=== PATIENT | female | born 1970 | race Caucasian/White ===

== ENCOUNTER 2024-11-14 03:39 | Emergency (ER) | payer BC, SELFPAY ==
[2024-11-14 03:50] VITALS: BP 152/94
[2024-11-14 04:23] LABS: Urine Albumin Negative (Neg - Trace); Urine Bilirubin Negative (Negative); Urine Character Clear (Clear); Urine Color Yellow; Urine Glucose Negative (Negative); Urine Ketone Negative (Negative); Urine Leukocyte Negative (Negative); Urine Nitrite Negative (Negative); Urine Occult Blood Negative (Negative); Urine Urobilinogen Negative (Neg - 1+); Urine pH 6.5 (5.0-9.0)
[2024-11-14 04:24] LABS: % Eosinophils 1.7 % (0-6); % Immature Granulocytes 0.2 % (0-0.5); % Lymphocytes 57.4 % (20.5-51.1); % Monocytes 11.1 % (1.7-9.3); % Neutrophils 27.6 % (42.2-75.2); Absolute Basophils 0.1 10^3/uL (0-0.2); Absolute Eosinophils 0.1 10^3/uL (0-0.7); Absolute Lymphocytes 2.6 10^3/uL (1.2-3.4); Absolute Monocytes 0.5 10^3/uL (0.1-0.6); Absolute Neutrophils 1.3 10^3/uL (1.4-6.5); Hematocrit 36.2 % (37.0-47.0); Hemoglobin 11.6 g/dL (12.0-16.0); Mean Corpuscular Hgb 27.4 pg (27.0-31.0); Mean Corpuscular Volume 85.4 fL (81.0-99.0); Mean Platelet Volume 9.3 fL (7.4-10.4); Nucleated Red Blood Cells % 0 %; Platelet Count 354 10^3/uL (130-400); Red Blood Cell Count 4.24 10^6/uL (4.20-5.40); Red Cell Dist. Width 13.2 % (11.5-14.5); White Blood Cell Count 4.6 10^3/uL (4.8-10.8)
[2024-11-14 04:41] LABS: ALT (SGPT) 19 U/L (0-35); AST (SGOT) 17 U/L (14-36); Albumin 4.2 g/dl (3.5-5.0); Alkaline Phosphatase 106 U/L (38-126); Blood Urea Nitrogen 13 mg/dl (7-17); Calcium 9.9 mg/dl (8.4-10.2); Carbon Dioxide 24 mmol/L (22-30); Chloride 106 mmol/L (98-107); Glucose 99 mg/dl (70-99); Potassium 4.3 mmol/L (3.5-5.1); Sodium 137 mmol/L (135-145); Total Bilirubin 0.3 mg/dl (0.2-1.3); Total Protein 7.3 g/dl (6.3-8.2); eGFR > 60.00
[2024-11-14 05:39] VITALS: BP 122/84; BMI 31.2
--- NOTE | 2024-11-14 05:41 | EDRN ---
Pt woke with R mid and lower back pain yesterday morning that waxes and wanes, sometimes feels like a contraction. Pt has been taking tylenol (last dose 0100) and advil (last dose 1700 yesterday) and using heat, cold and a patch (pt does not know
what it is, says was not lidocaine) and has not gotten much relief. Pt unable to sit down or lie down due to the pain and says she cannot sleep. Nothing seems to make the pain better. No recent travel (air, long car rides). Pt denies cp, sob
(although she feels she can't get a deep breath sometimes due to pain), abd pain, n/v/d/c, fever/chills/cough, urinary symptoms, weakness, dizziness, recent injury/change in routine/exercise. Pt adds when pain gets bad, it goes down her R leg. No
numbness/tingling.
--- NOTE | 2024-11-14 06:27 | ED.GENMED ---
History of Present Illness
General
Chief Complaint: Flank Pain
Time Seen by Provider: 11/14/24 06:27
History of Present Illness
History of Present Illness:
TIME OF INITIAL ENCOUNTER: 6:30 AM
HPI: Patient presents with right flank pain. The pain is intermittently severe. She has had a kidney stone in the past and the feels somewhat similar to the time she had a kidney stone. The pain radiates up to her shoulder and down her back at
times. She has had no fevers.
EXAM:
GENERAL: Well appearing in no distress
HEENT: Moist oral mucosa
CARDIOVASCULAR: No murmurs, normal heart rate, regular rhythm, No chest wall tenderness
PULMONARY: No respiratory distress, breath sounds are clear and equal
ABDOMEN: Soft with no peritoneal signs, no tenderness
NEUROLOGIC: Excellent strength all extremities, no coordination deficits
PSYCHIATRIC: Appropriate mental status, normal insight and judgement
EXTREMITIES: Nontender, no edema, moves all extremities equally
SKIN: No rash, no lesions
BACK: No significant CVA tenderness
NUMBER AND COMPLEXITY OF PROBLEMS ADDRESSED AT THE ENCOUNTER
� Chronic conditions affecting care: Has had a herniated disc in her back in the past
� Acute Exacerbation and/or Progression of Chronic Illness: This is an acute problem
� Differential Diagnosis includes: Ureteral stone/colic, UTI/pyelonephritis, musculoskeletal
AMOUNT AND/OR COMPLEXITY OF DATA TO BE REVIEWED AND ANALYZED
� I performed an independent evaluation of and my interpretation is:
EKG:
CT: CAT scan of the abdomen pelvis shows no acute abnormality, small right ovarian cysts noted
X-rays:
Laboratory Studies: White count 4.6, hemoglobin 11.6, chemistries including renal function normal, urinalysis shows no blood or signs of infection
Other:
� Review of other/old records: The patient was seen here in 2021 with right flank pain and at that time CT showed a 'probable 3 mm stone in the mid left ureter' however at that time her pain was on the right side
� Clinical information was obtained by an independent historian: None needed
� Prescriptions/Medications Considered but not given:
� Further testing considered but not performed:
RISK OF COMPLICATIONS AND/OR MORBIDITY OR MORTALITY OF PATIENT MANAGEMENT
� Social determinants of health affecting care: Lives at home
� Discussion with other providers:
� Escalation of care including admission/observation vs risk of discharge considered: The patient presents with right flank pain. No blood in the urine and no sign of infection but given the ongoing symptoms, will obtain CT
imaging.
ANY OTHER UPDATES:
9:15 AM: I reassessed patient. She was given Toradol but reports no significant improvement. However, she appears comfortable. Suspect muscular etiology, will try Flexeril as well.
Past History
Past History
ED Past Medical History: Other (Kidney stones)
ED Past Surgical History: None
Social History
Tobacco: Non-smoker
Alcohol: None
Personal:
Living: with family
Phy Exam
Physical Exam
Physical Exam:
See HPI
Sepsis
Sepsis Screening
Sepsis Assessment: Sepsis Ruled Out
Sepsis Screen
Sepsis Screen: Sepsis Ruled Out
Date: 11/14/24
Time: 10:03
Course
Orders/Labs/Results
Orders:
Orders
11/14/24 04:01
CBC/With Diff [Complete Blood Count/With Diff] Urgent
Comprehensive Metabolic Panel Urgent
Urinalysis Reflex To Culture Urgent
Date Specimen was Collected: 11/14/24
Time Specimen was Collected: 03:54
11/14/24 06:38
CT Abd/pel Without Iv Or Oral Urgent
Comment:
Reason For Exam: R flank pain
Ketorolac [Toradol] 30 mg IM NOW STA
Abnormal Lab Results
11/14/24
04:01
WBC 4.6 L 10^3/uL
(4.8-10.8)
Hgb 11.6 L g/dL
(12.0-16.0)
Hct 36.2 L %
(37.0-47.0)
MCHC 32.0 L g/dL
(33.0-37.0)
Absolute Neuts (auto) 1.3 L 10^3/uL
(1.4-6.5)
Neutrophils % 27.6 L %
(42.2-75.2)
Lymphocytes % 57.4 H %
(20.5-51.1)
Monocytes % 11.1 H %
(1.7-9.3)
11/14/24 04:01
11/14/24 04:01
Vital Signs
Initial and Last Documented VS:
Initial Vital Signs
Temp Pulse Resp BP Pulse Ox
37.3 C 70 24 152/94 98
11/14/24 03:50 11/14/24 03:50 11/14/24 03:50 11/14/24 03:50 11/14/24 03:50
Last Documented Vital Signs
Temp Pulse Resp BP Pulse Ox
36.8 C 74 16 124/74 98
11/14/24 09:29 11/14/24 09:29 11/14/24 09:29 11/14/24 09:29 11/14/24 09:29
*Critical Care Note
Total Time (30-74mins, 75-104mins- exclusive of procedures): Not Applicable
ED Attending Note
-
Portions of this chart may have been created with voice recognition software.� Occasional wrong word or��sound alike� substitutions may have occurred due to the inherent limitations of voice recognition software.
Discharge Plan
Departure
Patient Disposition: Home (Routine Discharge)
Date of Disposition: 11/14/24
Time of Disposition: 09:17
Patient with high blood pressure during this ER visit?: Yes
Discharge Problem:
Acute flank pain
Instructions: Flank Pain (DC), BLOOD PRESSURE
Prescriptions:
New
cyclobenzaprine 10 mg tablet
10 mg PO TID PRN (Reason: pain) Qty: 15 0RF
Referrals:
UNKNOWN - PT DOES,NOT KNOW [Family Provider] -
Activity Restrictions/Additional Instructions:
The cause of your symptoms is unclear. The CAT scan did not show any signs of kidney stones or other clear abnormality. Small right-sided ovarian cysts were noted but I do not think that this is the cause of your pain. Your white blood cell count
is normal, other basic labs including urinalysis is also normal. I am sending a prescription for Flexeril to your pharmacy. Continue Tylenol. I also recommend 3-4 doto-aiq-spnggua ibuprofen (Motrin) every 8 hours with food for a few days. Return
here if worse.
Interventions
Interventions:
*Risk Screen - Suicide Last Done: 11/14/24 03:50
*General Assessment Last Done: 11/14/24 05:39
*Neglect/Abuse Screening Last Done: 11/14/24 03:50
*ED- Fall Risk Assessment Last Done: 11/14/24 05:39
*ED COVID-19 Vaccine History Last Done: 11/14/24 05:39
*Nursing Disposition Last Done: 11/14/24 09:29
XS-Mfdewm-Jagjnfdnzl Assessment Last Done: 11/14/24 05:39
ED-Female Genitourinary Assessment Last Done: 11/14/24 05:39
Discharge Date and Time
Discharge Date/Time: 11/14/24 09:31
Print Language: SLOVAK
[2024-11-14] MEDS: TORADOL 30 MG IM (06:44)
[2024-11-14 07:56] VITALS: BP 124/84
[2024-11-14 09:29] VITALS: BP 124/74
--- NOTE | 2024-11-14 09:29 | EDRN ---
REviewed discharge instructions with patient. Verbalized understanding. Ambulated with steady gait to the lobby.
== END 2024-11-14 09:31 | disposition home or self-care (01) ==
LOC: EMR 03:39
PROVIDERS: Emergency Medicine; EMERGENCY PHYSICIAN Emergency Medicine
DX: R10.9 Unspecified abdominal pain (principal); Z87.442 Personal history of urinary calculi
CPT/HCPCS: 99284; 96372; 74176; 80053; 81003; 85025